=== PATIENT | female | born 1995 | race Caucasian/White ===

== ENCOUNTER 2020-10-15 12:48 | Emergency (ER) | payer OTHER, SELFPAY ==
[2020-10-15 12:51] VITALS: BP 142/100; PULSE 122; RESP 20; TEMP 36.5; O2SAT 100
[2020-10-15 12:56] VITALS: BP 142/100; PULSE 122; RESP 18; TEMP 36.5; O2SAT 100
--- NOTE | 2020-10-15 13:46 | ED.BURNSMOKE ---
HPI - Burn/Smoke Inhalation General Chief complaint: Burn/Smoke Inhalation Stated complaint: burn Time Seen by Provider: 10/15/20 13:22 History of Present Illness HPI Narrative: healthy 25 yo female presents to the ED for a burn. She was carrying hot soup when she tripped and spilled it on her left hand she has moderately painful tate to multiple fingers and the dorsum of the hand. This happened at work. She reports that the skin was starting to peel off so the applied silvadene and dressed the wound. She does nt want anything for the pain at this time. Related Data Allergies Allergy/AdvReac Type Severity Reaction Status Date / Time No Known Allergies Allergy Unverified 04/30/14 18:42 Review of Systems Review of Systems: All systems reviewed & are unremarkable except as noted in HPI and below Constitutional: Constitutional: Denies chills and Denies fever(s) Eyes: Eyes: Reports no additional eye complaints ENT: Reports system reviewed and no additional complaints, except as documented Cardiovascular: Cardiovascular: Denies chest pain Respiratory: Respiratory: Denies dyspnea Integumentary/Breasts: Skin/Breast: Reports as per HPI Neurologic: Denies numbness and Denies weakness [facility] Social History Social History (Updated 10/18/20 @ 12:29 by Jose A Fan MD) Gender identity (if verbalized by the patient): Female Sexual Orientation (if Verbalized by the Patient): Straight or Heterosexual Exam Const: General: healthy appearing, no acute distress and alert Orientation/consciousness: patient oriented x3 HENMT: Head: normal to inspection Resp: Effort & Inspection: normal respiratory effort Auscultation: clear to auscultation bilaterally Cardio: Rate: regular rate Rhythm: regular rhythm Other: 2 + left radial Skin: Other: Scattered tate to dorsum of the hands and fingers 2-5. Some blistering. Skin intact with no open wounds. Minimal burn to the palmar surface. No circumferential tate. Sensation intact throughout. Neuro: General: patient oriented x3, moves all extremities and no focal motor deficits Speech: normal speech Extrem: General: normal to inspection Course Vital Signs Vital signs: Vital Signs Temperature 36.5 C 10/15/20 12:51 Pulse Rate 122 H 10/15/20 12:51 Respiratory Rate 20 10/15/20 12:51 Blood Pressure 142/100 H 10/15/20 12:51 Pulse Oximetry 100 10/15/20 12:51 Temperature 36.5 C 10/15/20 12:56 Pulse Rate 122 H 10/15/20 12:56 Respiratory Rate 18 10/15/20 12:56 Blood Pressure 142/100 H 10/15/20 12:56 Pulse Oximetry 100 10/15/20 12:56 MDM - Burn/Smoke Inhalation MDM Narrative Medical decision making narrative: partial thickness tate to hand. No circumferential burn. No insensate areas. Should heal well on its own. I will prescribe silvadene for when blisters pop. She declined pain medication. Medical Records Attestation: I reviewed the patient's medical records. Discharge Plan Discharge Clinical Impression: Partial thickness burn of left hand Patient Disposition: Home, Self-Care Condition: Stable Instructions: Second-Degree Burn (ED) Prescriptions: New silver sulfadiazine [Silvadene] 1 % cream 1 applic topical BID Qty: 50 RF: 0 Follow-up/Referrals: Emanuel Nixon MD [Physician] - PHYSICIAN,HOSPICE VOLUNTEER COORDINATOR [Primary Care Provider] -
== END 2020-10-15 14:35 | disposition home or self-care (01) ==
PROVIDERS: Emergency Provider Emergency Medicine
DX: T23.232A Burn of second degree of multiple left fingers (nail), not including thumb, initial encounter (principal); T23.262A Burn of second degree of back of left hand, initial encounter; T31.0 Burns involving less than 10% of body surface; X10.1XXA Contact with hot food, initial encounter
CPT/HCPCS: 99283

== ENCOUNTER 2023-12-04 18:21 | Outpatient (CLI) | payer MEDICAID, SELFPAY ==
[2023-12-04 18:49] VITALS: BP 133/87; PULSE 91
[2023-12-04 19:00] VITALS: BP 121/94; PULSE 88
[2023-12-04 19:15] VITALS: BP 127/82; PULSE 81
[2023-12-04 19:30] VITALS: BP 127/80; PULSE 78
[2023-12-04 19:31] LABS: Basophils Percent Auto 0.2 % (0.2-1.2); Eosinophils Absolute Auto 0.1 K/mm3 (0-0.3); Eosinophils Percent Auto 0.7 % (0-4.4); Hematocrit 32.8 % (37.0-47.0); Hemoglobin 11.2 g/dL (12.0-15.0); Immature Granulocyte Absolute 0.09 K/mm3 (0.00-0.031); Immature Granulocyte Percent A 0.7 % (0-0.5); Lymphocytes Absolute Auto 1.78 K/mm3 (0.9-3.2); Mean Corpuscular HGB Conc 34.1 g/dl (32-36); Mean Corpuscular Hemoglobin 32.2 pg (26-34); Mean Corpuscular Volume 94.3 fl (80-100); Mean Platelet Volume 9.8 fl (7.4-10.4); Monocytes Absolute Auto 0.9 K/mm3 (0.1-0.6); Neutrophils Absolute Auto 9.8 K/mm3 (1.3-6.7); Neutrophils Percent Auto 77.4 % (45.5-73.1); Platelet Count Result 258 k/mm3 (150-375); Red Blood Count 3.48 M/mm3 (4.2-5.4); Red Cell Distribution Width 12.4 % (11.5-14.5); White Blood Count 12.7 K/mm3 (4.5-10.0)
[2023-12-04 19:38] LABS: Creatinine Urine 36.6 mg/dL; Total Protein Urine Random 13 mg/dL; Ur Ttl Prot Creatinine Ratio 0.36 mg/mg (0-0.20)
[2023-12-04 19:43] LABS: Alanine Aminotransferase 14 U/L (6-35); Albumin Level 3.7 g/dL (3.5-5.1); Alkaline Phosphatase 196 U/L (38-126); Anion Gap 8 mmol/L (4-12); Aspartate Amino Transferase 21 U/L (14-36); Bilirubin,Total 0.4 mg/dL (0.2-1.3); Blood Urea Nitrogen 7 mg/dL (7-17); Calcium 9.4 mg/dL (8.4-10.2); Carbon Dioxide 21 mmol/L (22-30); Chloride 107 mmol/L (98-107); Estimated Glomerular Filt Rate > 60; Glucose 80 mg/dL (65-110); Potassium 3.6 mmol/L (3.4-5.0); Sodium 136 mmol/L (137-145); Uric Acid 6.7 mg/dL (2.5-7.5)
[2023-12-04 19:45] VITALS: BP 131/85; PULSE 81
[2023-12-04 19:52] LABS: Appearance Urine Clear (Clear); Bilirubin Urine Negative (Negative); Blood Urine Negative (Negative); Color Urine Yellow (Yellow); Glucose Urine UA Negative (Negative); Ketones Urine Negative (Negative); Leukocyte Esterase Ur Negative LEU/UL (Negative); Nitrate Urine Negative (Negative); Protein Urine Negative (Negative); Specific Grav Ur 1.005 (1.001-1.035); Urobilinogen Urine 0.2 mg/dL (<2.0); pH Urine 6.5 (5.0-9.0)
[2023-12-04 19:57] LABS: Add Urine Microscopic? NO
[2023-12-04 20:00] VITALS: BP 129/80; PULSE 79
== END 2023-12-04 20:10 | disposition home or self-care (01) ==
LOC: ANHOBOP 18:29 → ANHOBPP 18:32
PROVIDERS: Visit Provider Obstetrics & Gynecology
DX: O13.9 Gestational [pregnancy-induced] hypertension without significant proteinuria, unspecified trimester (principal); Z3A.00 Weeks of gestation of pregnancy not specified
CPT/HCPCS: 36415; 80053; 81003; 82570; 84156; 84550; 85025; 99199

== ENCOUNTER 2023-12-13 16:54 | Inpatient (IN) | payer MEDICAID, SELFPAY ==
[2023-12-13] VITALS (27 sets, daily range): BP systolic 126–159; BP diastolic 80–99; PULSE 73–122; TEMP 36.7–37.1; BMI 28.4
--- NOTE | 2023-12-13 17:34 | LDADM ---
This patient, Valerie Montalvo, was admitted to Labor/Delivery/Recovery 107 on 12/13/23 at 16:54. Plans for labor, pain management and were discussed with patient. Patient/family oriented to hospital policies and general routines including ID bracelet, bed and alarms, visiting hours, pain management, procedures, bathroom and other care routines, personal items, smoking policy, room service/diet and guest tray routines, infant security routines, and visiting hours. Patient/Family are encouraged to report perceived risks to care and to ask questions if they do not understand what they are told or what they should do. See OBIX for further documentation.
[2023-12-13 17:47] LABS: Basophils Percent Auto 0.3 % (0.2-1.2); Eosinophils Absolute Auto 0.1 K/mm3 (0-0.3); Eosinophils Percent Auto 0.8 % (0-4.4); Hematocrit 33.8 % (37.0-47.0); Hemoglobin 11.4 g/dL (12.0-15.0); Immature Granulocyte Absolute 0.11 K/mm3 (0.00-0.031); Lymphocytes Absolute Auto 1.39 K/mm3 (0.9-3.2); Lymphocytes Percent Auto 12.6 % (18.3-44.2); Mean Corpuscular HGB Conc 33.7 g/dl (32-36); Mean Corpuscular Hemoglobin 31.6 pg (26-34); Mean Corpuscular Volume 93.6 fl (80-100); Mean Platelet Volume 10.1 fl (7.4-10.4); Monocytes Absolute Auto 0.7 K/mm3 (0.1-0.6); Monocytes Percent Auto 6.2 % (2.6-8.5); Neutrophils Absolute Auto 8.8 K/mm3 (1.3-6.7); Neutrophils Percent Auto 79.1 % (45.5-73.1); Platelet Count Result 215 k/mm3 (150-375); Red Blood Count 3.61 M/mm3 (4.2-5.4); Red Cell Distribution Width 12.9 % (11.5-14.5); White Blood Count 11.1 K/mm3 (4.5-10.0)
[2023-12-13 18:42] LABS: HIV 1/2 Ab P24 Ag Result Negative (Negative)
[2023-12-13] MEDS: miSOPROStol 25 MCG TABLET 50 MCG BUCCAL ×2 (18:46→22:56)
[2023-12-14] VITALS (258 sets, daily range): BP systolic 114–164; BP diastolic 57–132; PULSE 68–174; TEMP 36.6–37.3; O2SAT 96–100
[2023-12-14] MEDS: miSOPROStol 25 MCG TABLET 50 MCG BUCCAL (03:36)
--- NOTE | 2023-12-14 05:58 | WPDANESEPP ---
Anes - Eval Pre Procedure Procedure: Labor epidural Date/Time: 12/14/23 05:58 Preop Diagnosis: Abdominal pain with contractions Pre Op Diagnosis: Induction of Labor Patient Data Age: 28 Gender: F Height: 1.68 m Weight: 80 kg Last Vital Signs Temp 98.1 F 12/14/23 03:00 Pulse 68 12/14/23 05:46 BP 143/92 H 12/14/23 05:46 O2 Del Method Room Air 12/13/23 17:33 Allergies Allergy/AdvReac Type Severity Reaction Status Date / Time No Known Allergies Allergy Unverified 04/30/14 18:42 Home Medications Medication Instructions Recorded Confirmed Type silver sulfadiazine 1 % topical 1 applic topical BID #50 grams 10/15/20 Rx cream (Silvadene) Classic 1 tablet PO DAILY 12/13/23 12/13/23 History Laboratory Tests 12/13/23 17:24 WBC 11.1 H K/mm3 (4.5-10.0) RBC 3.61 L M/mm3 (4.2-5.4) Hgb 11.4 L g/dL (12.0-15.0) Hct 33.8 L % (37.0-47.0) MCV 93.6 fl (80-100) MCH 31.6 pg (26-34) MCHC 33.7 g/dl (32-36) RDW 12.9 % (11.5-14.5) Plt Count 215 k/mm3 (150-375) MPV 10.1 fl (7.4-10.4) Immature Gran % (Auto) 1.0 H % (0-0.5) Neut % (Auto) 79.1 H % (45.5-73.1) Lymph % (Auto) 12.6 L % (18.3-44.2) [place] % (Auto) 6.2 % (2.6-8.5) Eos % (Auto) 0.8 % (0-4.4) Baso % (Auto) 0.3 % (0.2-1.2) Lymph # (Auto) 1.39 K/mm3 (0.9-3.2) [place] # (Auto) 0.7 H K/mm3 (0.1-0.6) Eos # (Auto) 0.1 K/mm3 (0-0.3) Baso # (Auto) 0.0 K/mm3 (0.0-0.1) Abs Immat Gran (auto) 0.11 H K/mm3 (0.00-0.031) Absolute Neuts (auto) 8.8 H K/mm3 (1.3-6.7) Absolute Nucleated RBC 0.000 K/mm3 (0.0-0.012) Nucleated RBC % 0.0 % (0.0-0.2) RPR Pending HIV 1&2 Ab/P24 Ag 4thGn Negative (Negative) Blood Type O Positive Antibody Screen Negative : gestational age HCG: positive Patient hx anesthesia problems: none Family hx anesthesia problems: none Results Review: All pre-operative results and documents have been reviewed as part of the pre-operative evaluation. PENDING SALE TO [facility] Past Medical History Medical History (Updated 12/14/23 @ 05:59 by Russel Peguero Jr., CRNA) Overweight (BMI 25.0-29.9) and not yet delivered Social History Social History (Updated 10/18/20 @ 12:29 by Jose A Fan MD) Smoking status: Never smoker Substance use: current Do You Feel Safe in your Home?: Yes Lack of Transportation: No Lack of Food: Never True Current Housing: I Have Housing Concerned About Future Housing: No Difficulty Paying Gas/Electric Bills: No Difficulty Paying for Meds: No Currently Unemployed: No Education: Associate Degree Difficulty w/ Childcare or Family Care: No Gender identity (if verbalized by the patient): Female Sexual Orientation (if Verbalized by the Patient): Straight or Heterosexual Spiritual care concerns: No Exam Day of Procedure 12/14/23 05:58 Patient weight: overweight
[2023-12-14] MEDS: fentaNYL CITRATE INJ (*CRX) 100 MCG/2 ML VIAL 50 MCG IV PUSH (07:25)
[2023-12-14] MEDS: LACTATED RINGERS 1,000 ML 125 ML IV CONT ×3 (07:47→14:39)
[2023-12-14] MEDS: fentaNYL CITRATE INJ (*CRX) 100 MCG/2 ML VIAL IV PUSH (08:38)
--- NOTE | 2023-12-14 08:40 | WPDHPUPDATE1 ---
History and Physical Update Update Date/Time: 12/14/23 08:40 28-year-old 1 at 39 weeks gestation for elective induction of labor. Unremarkable health history. Reassuring heart tones. Started induction with Cytotec overnight, starting Pitocin, artificial rupture of membranes-clear/ 50%/ -2/ 1.5. IUPC placed. expectant management History and Physical has been reviewed, including an updated exam of the patient. There are NO changes in the patient's condition. Risks, benefits, and alternatives have been discussed and questions answered. Patient agrees to proceed with procedure.
[2023-12-14] MEDS: OXYTOCIN 30 UNITS/NS 500 ML 30 UNITS/500 ML BAG 6 UNITS IV CONT (09:56)
[2023-12-14 14:07] LABS: Rapid Plasma Reagin Non-Reactive (NonReactive)
[2023-12-14] MEDS: DEXTROSE 5%/LACTATED RINGERS 1,000 ML 125 ML IV CONT ×2 (15:54→19:00)
[2023-12-14] MEDS: OXYTOCIN 30 UNITS/NS 500 ML 30 UNITS/500 ML BAG 999 UNITS IV CONT (21:30)
--- NOTE | 2023-12-14 21:52 | PM.OBPRVD ---
OB - Vaginal Delivery Note Procedure Delivery date: 12/14/23 Induction method: AROM and Per Misoprostol Protocol Delivery monitor: External FHT and Internal Uterine Route of delivery: Episiotomy description: Midline Laceration Description: None Delivery repair: vicryl Specimen: No Quantitative Blood Loss (ml): 300 Anesthesia type: Epidural Disposition: Floor Complications: No immediate complications Baby Date of : 12/14/23 Time of : 21:26 Weeks of gestation at delivery: 39 score one minute: 8 score five minutes: 9
[2023-12-14] MEDS: OXYTOCIN 30 UNITS/NS 500 ML 30 UNITS/500 ML BAG 125 UNITS IV CONT (21:57)
--- NOTE | 2023-12-15 00:07 | OBPPTRN ---
Patient transferred to post room #290 via wheelchair. Support person present. Oriented to unit, room, information board, rooming in, admission packet and security measures. Patient verbalizes understanding.
[2023-12-15 00:12] VITALS: BP 140/80; PULSE 101; RESP 18; TEMP 36.9; O2SAT 99
[2023-12-15] MEDS: WITCH HAZEL 40 PADS 1 PAD TOPICAL (00:20)
[2023-12-15] MEDS: ACETAMINOPHEN 325 MG TABLET 650 MG PO ×3 (00:48→21:24)
[2023-12-15] MEDS: IBUPROFEN 600 MG TABLET PO ×3 (00:49→17:29)
[2023-12-15 04:36] VITALS: BP 135/77; PULSE 93; RESP 18; TEMP 36.8; O2SAT 98
[2023-12-15 05:30] LABS: Hematocrit 31.1 % (37.0-47.0)
[2023-12-15 07:55] VITALS: BP 119/78; PULSE 92; RESP 16; TEMP 37.7; O2SAT 98
[2023-12-15] MEDS: MULTIVIT/MIN/PREN/FOL AC/IRON TABLET 1 TAB PO (08:16)
--- NOTE | 2023-12-15 12:40 | PC.NURSE ---
0930 Introductions were made, then consulted with patient to assess needs related to . Discussed with mother her?plans to feed?her infant and the?experience so far. Mother is eating breakfast and just finished feeding baby. She would like a consultation after meal eating her meal and assistance with next infant feeding. Reported to the Primary RN.
--- NOTE | 2023-12-15 12:43 | PC.NURSE ---
4321 Mother led the conversation with her?plans to feed?her and the?experience so far. Encouraged understanding of the benefits of skin to skin (demonstrating unwrapping and placing upright on her chest), stimulating with massage touch, changing positions to encourage wakefulness, how to watch for early feeding cues, responsive feeding, feeding on demand (aiming for 8-12 times in 24 hours, about every 2-3 hours), milk production, building/maintaining a milk supply, duration of feeding, signs of adequate intake/output and how to record on the feeding sheet. Mother works well with her infant with encouragement and education. Reviewed positioning and ear, shoulder, hip alignment, supporting the breast to facilitate a deep latch, asymmetrical latch (off-center), leading with the chin with a big, open, wide gape and body close to mother. Infant latched optimally to the both breasts in cross cradle position with use of the nipple shield (after attempts to latch baby without the shield). Education given to the mother of how to visualize the suckling (with good rocking jaw motion), swallows (dropping of the lower jaw) and how to listen for drinking at the breast (the ka sound). was able to maintain latch without pain to mother protecting the nipple with optimal positioning and latching. Reviewed comfort measures of healing with a warm, wet washcloth to rinse breast, then leave open to air-dry, good handwashing when or touching the breast/nipples to prevent infection. Mother voiced understanding of skin to skin, stimulating with massage touch, responsive feedings, hand expressed colostrum, talking to to encourage if it has been 2 -2.5 hours since the start of the last , to call if infant does not latch, or if there is discomfort with . Resources used for education were facilitated with the [visual educational handouts/ tool/mom and baby guide], Inpatient/outpatient resources provided with business card, feeding sheet, name written on the communication board, and the mom/baby guide. Parents voiced understanding of information, demonstrated learning and will call if there is a request for assistance. Reported to the Primary RN.
--- NOTE | 2023-12-15 15:35 | WPDANLDPN2 ---
Anes-Prog Note L&D Date/Time: 12/15/23 15:35 Comfortable throughout: labor and delivery Neuraxial method: epidural Epidural/Spinal procedure site: clean & non-tender Neuro status: Neuro function grossly intact. Cardiovascular status: normal Respiratory status: normal Airway patency: baseline Mental status: baseline Post-Op hydration status: normal Vital Signs: Last Vital Signs Temp 37.7 C H 12/15/23 07:55 Pulse 92 12/15/23 07:55 Resp 16 12/15/23 07:55 BP 119/78 12/15/23 07:55 Pulse Ox 98 12/15/23 07:55 O2 Del Method Room Air 12/13/23 17:33 Pain score (VAS): 0 I/O: Intake & Output 12/14/23 12/15/23 12/15/23 23:59 07:59 15:59 Intake Total 387.5 500 480 Output Total 75 Balance 387.5 425 480 Post-procedural complaints: none Patient feedback: Patient satisfied with anesthetic care.
[2023-12-15 21:27] VITALS: BP 131/84; PULSE 88; RESP 18; TEMP 37.2; O2SAT 99
[2023-12-16] MEDS: IBUPROFEN 600 MG TABLET PO (04:48)
[2023-12-16] MEDS: MULTIVIT/MIN/PREN/FOL AC/IRON TABLET 1 TAB PO (07:27)
[2023-12-16] MEDS: TETANUS,DIPHTHERIA,AC PERTUSSIS ADULT (0.5 ML) BOOSTRIX IM (07:29)
[2023-12-16 08:50] VITALS: BP 142/88; PULSE 95; RESP 16; TEMP 36.9; O2SAT 100
--- NOTE | 2023-12-16 10:31 | PM.OBPNVD ---
OB - PN: Subj Subjective Date/time seen: 12/16/23 10:31 Interval history: pp day 2 desires d/ OB - PN: Obj Data Labs 12/15/23 04:46 OB - PN A/P Plan day: 2 Plan: routine care and discharge home Time Spent With Patient Time: Total time spent is greater than 50% in coordination of care (as documented) at patient's floor/unit and/or counseling patient: Review of Systems Review of Systems: All systems reviewed & are unremarkable except as noted in HPI and below Exam Const: General: cooperative and healthy appearing Skin: General skin exam: normal color
--- NOTE | 2023-12-16 10:33 | PM.OBDSVD ---
DS: Admitting Diagnosis Discharge Date 12/16/23 Admitting Diagnosis IOL DS: Discharge Diagnosis Discharge Diagnosis (1) Vaginal delivery: Code(s): O80 - Encounter for full-term uncomplicated delivery Status: Acute OB - DS: Summary OB Procedures : None OB Procedures Intrapartum: Spontaneous Vag Delivery OB Procedures: : None Peripartum Data Laceration Description: None Episiotomy description: Midline Time Spent with Patient Time attestation: Total time spent providing and/or coordinating discharge services: Discharge Plan Discharge Attending physician on discharge: Osbaldo Belle Discharging Clinician: Liudmila Castellanos Patient Disposition: Home, Self-Care Activity: pelvic rest Diet: as tolerated Patient Instructions: Antibiotic Form Stand Alone Forms: General Discharge Information Follow-up/Referrals: Osbaldo Belle MD [Physician] - 4 Weeks Discharge Medications: Continued Classic 1 tablet PO DAILY Date of admission: 12/13/23 16:54 Primary Care Provider: UNKNOWN,DOCTOR Admitting Provider: Osbaldo Belle Attending physician on admission: Osbaldo Belle Condition: Stable
--- NOTE | 2023-12-16 11:06 | PC.NURSE ---
Patient viewed the discharge video Mother & Baby Care, The First Two Weeks . Patient was given the opportunity and encouraged to ask questions. Patient verbalized understanding of information shared and has been given the mother/baby guide for home reference.
--- NOTE | 2023-12-16 12:55 | PC.NURSE ---
[id number]. Consulted with mother concerning needs and she shared her ability to independently latch optimally without pain. Mother is feeding appropriately for growth of and understands stimulating infant to eat if needed. Mother reports using the nipple shield at times to help to larch on and removes shield after 5 mins of latching to finish the feed with infant off the shield. Mother feeding infatnt at the time of our consult on the L breast, infant with an appropriate latch with good sucks and swallows. Mom reports no pain and strokes babies head and legs to encourage him to stay awake and feed. Infant has had appropriate feedings in the last 24 hours meets the outcomes for weight, output, blood sugar and jaundice at this time. Reinforced understanding of milk production, transition of milk, signs of adequate intake, transition of stool, prevention/relief of engorgement, plugged ducts, mastitis, responsive watching for feeding cues, the different methods of stimulating to breastfeed 1-3 hours after the start of the last feeding, community resources, and when to call a provider using the resource of the feeding sheet along with the mom and baby guide. Mother voiced understanding of the information shared, is confident to continue effectively her at home, when to call for assistance, denies any additional assistance or education at this time. Reported to the Primary RN.
[2023-12-17 08:36] VITALS: BP 134/88; PULSE 94; RESP 18; TEMP 36.8; O2SAT 99
== END 2023-12-16 11:40 | disposition home or self-care (01) | DRG 560 ==
LOC: ANHLDR 16:58 → ANHOB2 12-15 00:15
PROVIDERS: Admitting Provider Obstetrics & Gynecology; Visit Provider Obstetrics & Gynecology
DX: O80 Encounter for full-term uncomplicated delivery (principal); Z37.0 Single live birth; Z3A.39 39 weeks gestation of pregnancy
CPT/HCPCS: 36415; 85014; 85018; 85025; 86592; 86703; 86850; 86900; 86901; 90715; A9270; G0432; J2590; J2795; J3010; J7120; J7121